=== PATIENT | male | born 1975 | race Caucasian/White ===

== ENCOUNTER 2020-06-23 12:30 | Emergency (ER) | payer MEDICAID ==
[~2020-06-23] VITALS: Ht 160 cm; Wt 60.0 kg
[2020-06-23 12:36] VITALS: BP 180/100
[2020-06-23] MEDS ORDERED: LIDOCAINE 5% PATCH TOP SCH (13:00)
[2020-06-23] MEDS ORDERED: GABAPENTIN 300MG CAPSULE PO ONE (13:00)
[2020-06-23] MEDS ORDERED: ACETAMINOPHEN 325MG TABLET PO ONE (13:00)
[2020-06-23] MEDS ORDERED: LIDO1ADH7 TP (14:45)
[2020-06-23] MEDS ORDERED: TOPUD MT (14:45)
[2020-06-23] MEDS ORDERED: GABA-532 MT (14:45)
== END 2020-06-23 15:18 | disposition home or self-care (01) ==
LOC: ER 12:30
DX: M25.562 Pain in left knee (principal); I10 Essential (primary) hypertension; Z98.890 Other specified postprocedural states
CPT/HCPCS: 73502; 99283

== ENCOUNTER 2021-09-27 12:49 | Emergency (ER) | payer MEDICAID ==
[~2021-09-27] VITALS: Ht 160 cm; Wt 60.0 kg
[~2021-09-27 12:49] MED LIST: ASPI-1406 MT; CALC667T6 MT; FERR325T6 MT; GABA-529 MT; GABA-532 MT; LIDO1ADH7 TP; METO-539 MT; NEPVIT MT; NIFE-32 MT; PRAV20TA57 MT; SEVE800T8 MT; TOPUD MT
[2021-09-27 12:57] VITALS: BP 234/122
== END 2021-09-27 21:12 | disposition left against medical advice (07) ==
LOC: ER 12:49
DX: Z53.21 Procedure and treatment not carried out due to patient leaving prior to being seen by health care provider (principal)

== ENCOUNTER 2021-09-28 15:03 | Inpatient (IN) | payer MEDICAID ==
[~2021-09-28] VITALS: Ht 160 cm; Wt 63.5 kg
[2021-09-28] MEDS ORDERED: HYDRALAZINE 20MG/ML VIAL IV ONE ×2 (15:15→17:00)
[2021-09-28 15:37] LABS: BASOPHILS % 3.1 % (0.0-2.0); EOSINOPHILS % 5.9 % (0.0-5.0); HEMATOCRIT. 31.9 % (42.0-52.0); HEMOGLOBIN. 11.3 g/dL (14.0-18.0); LYMPHOCYTES % 14.7 % (20.0-50.0); MEAN CORPUSCULAR HEMOGLOBIN 32.9 pg (28.0-32.0); MEAN CORPUSCULAR VOLUME 93.3 fL (80.0-94.0); MEAN PLATELET VOLUME 7.3 fl (7.4-10.4); MONOCYTES % 5.9 % (2.0-8.0); NEUTROPHILS % 70.4 % (40.0-76.0); PLATELET 175 x1000/uL (130-400); RED BLOOD CELL COUNT 3.42 mill/uL (4.7-6.1); RED CELL DISTRIBUTION WIDTH 15.5 % (11.6-14.6)
[2021-09-28 15:47] LABS: CHLORIDE 99 mEq/L (98-107)
[2021-09-28 22:50] VITALS: BP 186/98
[2021-09-29] MEDS ORDERED: DEXTROSE 50% WATER 50ML SYRINGE IV PRN ×2 (00:45)
[2021-09-29] MEDS ORDERED: ACETAMINOPHEN 325MG TABLET PO PRN (00:45)
[2021-09-29] MEDS: CLONIDINE 0.1MG TABLET PO PRN (01:55)
[2021-09-29 04:00] VITALS: BP 164/92
[2021-09-29] MEDS: BLOOD SUGAR DIAGNOSTIC STRIP TEST SCH ×4 (07:13→20:46)
[2021-09-29] MEDS: INSULIN LISPRO 100 UNITS/ML SUBCUT SCH ×4 (07:14→20:46)
[2021-09-29 07:36] VITALS: BP 175/94
[2021-09-29] MEDS: ASPIRIN 81MG EC TABLET PO SCH (08:16)
[2021-09-29] MEDS: NIFEDIPINE XL 60MG TAB PO SCH (08:17)
[2021-09-29] MEDS: METOPROLOL TARTRATE 50MG TABLET PO SCH ×2 (08:17→17:21)
[2021-09-29] MEDS: SEVELAMER CARBONATE 800 MG TABLET PO SCH ×3 (08:17→17:21)
[2021-09-29] MEDS: FOLIC ACID/VITAMIN B COMP W-C TABLET PO SCH (08:17)
[2021-09-29] MEDS ORDERED: REGADENOSON 0.4 MG/5 ML IV NR (08:30)
[2021-09-29] MEDS: HYDRALAZINE HCL 50MG TABLET PO SCH ×3 (10:00→22:27)
[2021-09-29 11:36] VITALS: BP 168/92
[2021-09-29 13:01] LABS: HEPATITIS B SURFACE ANTIGEN NEGATIVE
[2021-09-29 16:00] VITALS: BP 128/73
[2021-09-29 20:00] VITALS: BP 142/83
[2021-09-29] MEDS: ATORVASTATIN CALCIUM 10MG TABLET PO SCH (20:46)
[2021-09-30] VITALS: BP 126/72
[2021-09-30 04:00] VITALS: BP 156/91
[2021-09-30] MEDS: HYDRALAZINE HCL 50MG TABLET PO SCH ×3 (05:17→21:51)
[2021-09-30] MEDS: BLOOD SUGAR DIAGNOSTIC STRIP TEST SCH ×4 (06:31→21:52)
[2021-09-30] MEDS: INSULIN LISPRO 100 UNITS/ML SUBCUT SCH ×4 (06:31→21:00)
[2021-09-30 07:03] LABS: BASOPHILS % 1.7 % (0.0-2.0); EOSINOPHILS % 7.8 % (0.0-5.0); HEMATOCRIT. 31.6 % (42.0-52.0); HEMOGLOBIN. 10.7 g/dL (14.0-18.0); LYMPHOCYTES % 18.5 % (20.0-50.0); MEAN CORPUSCULAR HEMOGLOBIN 31.8 pg (28.0-32.0); MEAN CORPUSCULAR VOLUME 93.8 fL (80.0-94.0); MEAN PLATELET VOLUME 7.8 fl (7.4-10.4); PLATELET 173 x1000/uL (130-400); RED BLOOD CELL COUNT 3.37 mill/uL (4.7-6.1); RED CELL DISTRIBUTION WIDTH 15.6 % (11.6-14.6)
[2021-09-30 07:44] VITALS: BP 155/85
[2021-09-30] MEDS: SEVELAMER CARBONATE 800 MG TABLET PO SCH ×3 (08:20→17:10)
[2021-09-30] MEDS: NIFEDIPINE XL 60MG TAB PO SCH (08:20)
[2021-09-30] MEDS: FOLIC ACID/VITAMIN B COMP W-C TABLET PO SCH (08:20)
[2021-09-30] MEDS: ASPIRIN 81MG EC TABLET PO SCH (08:20)
[2021-09-30] MEDS: METOPROLOL TARTRATE 50MG TABLET PO SCH ×2 (08:20→17:10)
[2021-09-30 11:49] VITALS: BP 158/90
[2021-09-30 15:48] VITALS: BP 137/80
[2021-09-30] MEDS: ATORVASTATIN CALCIUM 10MG TABLET PO SCH (21:51)
[2021-10-01] VITALS: BP 173/104
[2021-10-01] MEDS: CLONIDINE 0.1MG TABLET PO PRN ×2 (01:04→17:12)
[2021-10-01 03:48] VITALS: BP 156/91
[2021-10-01] MEDS: HYDRALAZINE HCL 50MG TABLET PO SCH ×2 (05:56→13:36)
[2021-10-01] MEDS: BLOOD SUGAR DIAGNOSTIC STRIP TEST SCH ×3 (06:13→17:17)
[2021-10-01] MEDS: INSULIN LISPRO 100 UNITS/ML SUBCUT SCH ×3 (06:13→17:40)
[2021-10-01 07:09] LABS: BASOPHILS % 1.9 % (0.0-2.0); EOSINOPHILS % 8.4 % (0.0-5.0); HEMATOCRIT. 31.4 % (42.0-52.0); HEMOGLOBIN. 10.7 g/dL (14.0-18.0); LYMPHOCYTES % 21.6 % (20.0-50.0); MEAN CORPUSCULAR HEMOGLOBIN 32.2 pg (28.0-32.0); MEAN CORPUSCULAR VOLUME 94.9 fL (80.0-94.0); MEAN PLATELET VOLUME 7.6 fl (7.4-10.4); MONOCYTES % 7.9 % (2.0-8.0); NEUTROPHILS % 60.2 % (40.0-76.0); PLATELET 164 x1000/uL (130-400); RED BLOOD CELL COUNT 3.31 mill/uL (4.7-6.1); RED CELL DISTRIBUTION WIDTH 15.6 % (11.6-14.6)
[2021-10-01 08:00] VITALS: BP 189/109
[2021-10-01] MEDS: METOPROLOL TARTRATE 50MG TABLET PO SCH ×2 (08:36→17:12)
[2021-10-01] MEDS: NIFEDIPINE XL 60MG TAB PO SCH (08:37)
[2021-10-01] MEDS: SEVELAMER CARBONATE 800 MG TABLET PO SCH ×3 (09:00→17:12)
[2021-10-01] MEDS ORDERED: REGADENOSON 0.4 MG/5 ML IV ONE (10:51)
[2021-10-01 12:00] VITALS: BP 141/83
[2021-10-01] MEDS: FOLIC ACID/VITAMIN B COMP W-C TABLET PO SCH (13:36)
[2021-10-01] MEDS: ASPIRIN 81MG EC TABLET PO SCH (13:36)
[2021-10-01] MEDS ORDERED: HYDR100T26 MT (14:54)
[2021-10-01] MEDS ORDERED: NIFE-32 MT (14:54)
[2021-10-01] MEDS ORDERED: METO-539 MT (14:54)
[2021-10-01 16:00] VITALS: BP 159/95
[2021-10-01 17:57] VITALS: BP 150/86
== END 2021-10-01 18:30 | disposition home or self-care (01) | DRG 194 ==
LOC: ER 15:03 → EDBEDREQ 20:14 → EDBEDREQTM 20:14 → ENRESERV 21:07 → 8WST 23:03
PROVIDERS: ADMIT Internal Medicine; ATTEND Internal Medicine
PROC: 5A1D70Z Performance of Urinary Filtration, Intermittent, Less than 6 Hours Per Day (ICD-10-PCS; principal; 2021-09-29)
DX: I13.2 Hypertensive heart and chronic kidney disease with heart failure and with stage 5 chronic kidney disease, or end stage renal disease (principal); J81.1 Chronic pulmonary edema; N18.6 End stage renal disease; E87.1 Hypo-osmolality and hyponatremia; M94.0 Chondrocostal junction syndrome [Tietze]; I50.31 Acute diastolic (congestive) heart failure; I16.0 Hypertensive urgency; E78.5 Hyperlipidemia, unspecified; E87.5 Hyperkalemia; Z20.822 Contact with and (suspected) exposure to COVID-19; D64.9 Anemia, unspecified; Z79.82 Long term (current) use of aspirin; Z99.2 Dependence on renal dialysis; Z82.49 Family history of ischemic heart disease and other diseases of the circulatory system
CPT/HCPCS: 36415; 71045; 78452; 80048; 80053; 82962; 83036; 83880; 84132; 84484; 85025; 86705; 86709; 86803; 87340; 87426; 93005; 93017; 93306; 99291; A9500; J0360; J2785

== ENCOUNTER 2022-04-03 17:40 | Inpatient (IN) | payer MEDICAID ==
[~2022-04-03] VITALS: Ht 162.6 cm; Wt 64.5 kg
[~2022-04-03 17:40] MED LIST changes: +HYDR100T26 MT
[2022-04-03 23:12] LABS: BASOPHILS % 0.7 % (0.0-2.0); EOSINOPHILS % 2.5 % (0.0-5.0); HEMATOCRIT. 23.2 % (42.0-52.0); HEMOGLOBIN. 7.9 g/dL (14.0-18.0); LYMPHOCYTES % 7.7 % (20.0-50.0); MEAN CORPUSCULAR HEMOGLOBIN 33.1 pg (28.0-32.0); MEAN CORPUSCULAR VOLUME 97.8 fL (80.0-94.0); MEAN PLATELET VOLUME 7.5 fl (7.4-10.4); MONOCYTES % 7.6 % (2.0-8.0); NEUTROPHILS % 81.5 % (40.0-76.0); PLATELET 132 x1000/uL (130-400); RED BLOOD CELL COUNT 2.37 mill/uL (4.7-6.1); RED CELL DISTRIBUTION WIDTH 15.6 % (11.6-14.6)
[2022-04-03 23:13] LABS: CHLORIDE 98 mEq/L (98-107)
[2022-04-04] VITALS (12 sets, daily range): BP systolic 109–191; BP diastolic 60–108
[2022-04-04] MEDS ORDERED: CALCIUM CHLORIDE 1GM/10ML SYR IV ONE ×2 (00:15→05:00)
[2022-04-04] MEDS ORDERED: INSULIN REGULAR (HUMULIN R) 300UNITS/3ML VIAL IV ONE (00:15)
[2022-04-04] MEDS ORDERED: ALBUTEROL (0.083%) 2.5MG/3ML NEB HHN ONE ×2 (00:15→05:00)
[2022-04-04] MEDS ORDERED: SODIUM BICARBONATE 8.4% 1 MEQ/ML 50ML SYR IV ONE (00:15)
[2022-04-04] MEDS ORDERED: DEXTROSE 50% WATER 50ML SYRINGE IV ONE (00:15)
[2022-04-04 03:51] LABS: BG BASE EXCESS -0.7 mmol/L (-2.0-2.0); BG CARBOXYHEMOGLOBIN 0.6 % (0.5-1.5); BG DEOXYHEMOGLOBIN 10.5 % (0.0-5.0); BG FRACTION INSPIRED OXYGEN 21; BG HCO3 ACT 23.3 mmol/L (22.0-26.0); BG METHEMOGLOBIN 0.3 % (0.0-1.5); BG OXYGEN SATURATION 89.4 % (92.0-98.5); BG OXYHEMOGLOBIN 88.6 % (94.0-97.0); BG PCO2 35.3 mmHg (35.0-45.0); BG PH 7.438 (7.350-7.450); BG PO2 62.2 mmHg (75.0-100.0); BG SAMPLE SITE RIGHT RADIAL; BG TOTAL HEMOGLOBIN 7.7 g/dL (12.0-18.0); BG VENT MODE ROOM AIR
[2022-04-04] MEDS ORDERED: ONDANSETRON HCL 4MG/2ML INJ IV PRN (04:15)
[2022-04-04] MEDS ORDERED: MAGNESIUM/ALUMINUM HYDROXIDE/SIMETHICONE 30ML UDC PO PRN (04:15)
[2022-04-04] MEDS ORDERED: IPRATROPIUM/ALBUTEROL 0.5-3(2.5)MG/3ML NEB NEB PRN (04:15)
[2022-04-04] MEDS ORDERED: ACETAMINOPHEN 325MG TABLET PO PRN ×2 (04:15)
[2022-04-04] MEDS ORDERED: NIFE90TA43 PO (04:24)
[2022-04-04] MEDS ORDERED: DOXA4TAB3 PO (04:24)
[2022-04-04] MEDS ORDERED: HYDR100T31 PO (04:24)
[2022-04-04] MEDS ORDERED: SODIUM POLYSTYRENE SULFONATE 15 G/60 ML BOT PO NR (05:00)
[2022-04-04 06:33] LABS: HEMATOCRIT. 22.7 % (42.0-52.0); HEMOGLOBIN. 7.8 g/dL (14.0-18.0); MEAN CORPUSCULAR HEMOGLOBIN 33.5 pg (28.0-32.0); MEAN CORPUSCULAR VOLUME 98.1 fL (80.0-94.0); MEAN PLATELET VOLUME 7.3 fl (7.4-10.4); PLATELET 124 x1000/uL (130-400); RED BLOOD CELL COUNT 2.31 mill/uL (4.7-6.1); RED CELL DISTRIBUTION WIDTH 15.6 % (11.6-14.6)
[2022-04-04] MEDS: CLONIDINE 0.1MG TABLET PO PRN ×2 (06:35→15:39)
[2022-04-04 06:39] LABS: CHLORIDE 97 mEq/L (98-107)
[2022-04-04 06:55] LABS: HDL CHOLESTEROL 70 mg/dL (40-59); LDL CHOLESTEROL 69 mg/dL (5-100); T4 FREE 1.33 ng/dL (0.76-1.46); TOTAL IRON BINDING CAPACITY 261 ug/dL (250-450)
[2022-04-04 07:02] LABS: CREATINE KINASE MB FRACTION 4.4 ng/mL (0.5-3.6); FERRITIN 950 ng/mL (22-322)
[2022-04-04 07:14] LABS: VITAMIN B12 SERUM 416 pg/mL (211-911)
[2022-04-04 07:15] LABS: HEPATITIS B SURFACE ANTIGEN NEGATIVE
[2022-04-04 08:17] LABS: PHOSPHORUS 3.7 mg/dL (2.5-4.9)
[2022-04-04] MEDS ORDERED: DOXAZOSIN MESYLATE 4MG TABLET PO SCH (09:00)
[2022-04-04] MEDS: HYDRALAZINE HCL 100MG TABLET PO SCH ×2 (09:00→17:11)
[2022-04-04 09:09] LABS: PLATELET ESTIMATE SLIGHTLY DECREASED
[2022-04-04] MEDS: SEVELAMER CARBONATE 800 MG TABLET PO SCH ×3 (12:10→17:45)
[2022-04-04] MEDS: FOLIC ACID/VITAMIN B COMP W-C TABLET PO SCH (14:25)
[2022-04-04] MEDS: FAMOTIDINE 20MG/2ML VIAL IV SCH (14:25)
[2022-04-04] MEDS: NIFEDIPINE XL 90MG TAB PO SCH (14:26)
[2022-04-04] MEDS: ATORVASTATIN CALCIUM 10MG TABLET PO SCH (14:26)
[2022-04-04] MEDS: DOXAZOSIN MESYLATE 4MG TABLET PO SCH (17:46)
[2022-04-04] MEDS ORDERED: IPRATROPIUM BROMIDE (0.02%) 0.5MG/2.5ML NEB HHN PRN (18:00)
[2022-04-04] MEDS ORDERED: ALBUTEROL (0.083%) 2.5MG/3ML NEB HHN PRN (18:00)
[2022-04-04 18:10] LABS: T4 FREE 1.15 ng/dL (0.76-1.46)
[2022-04-05] VITALS (16 sets, daily range): BP systolic 116–192; BP diastolic 51–105
[2022-04-05] MEDS: CLONIDINE 0.1MG TABLET PO PRN ×2 (04:48→13:30)
[2022-04-05] MEDS: SEVELAMER CARBONATE 800 MG TABLET PO SCH ×3 (06:38→17:57)
[2022-04-05] MEDS: FOLIC ACID/VITAMIN B COMP W-C TABLET PO SCH (08:41)
[2022-04-05] MEDS: ATORVASTATIN CALCIUM 10MG TABLET PO SCH (08:41)
[2022-04-05] MEDS: FAMOTIDINE 20MG/2ML VIAL IV SCH (08:41)
[2022-04-05] MEDS: NIFEDIPINE XL 90MG TAB PO SCH (08:42)
[2022-04-05] MEDS: DOXAZOSIN MESYLATE 4MG TABLET PO SCH ×2 (08:42→17:57)
[2022-04-05] MEDS: HYDRALAZINE HCL 100MG TABLET PO SCH ×3 (08:54→21:40)
[2022-04-05 09:34] LABS: BASOPHILS % 1.7 % (0.0-2.0); EOSINOPHILS % 5.8 % (0.0-5.0); HEMATOCRIT. 21.2 % (42.0-52.0); HEMOGLOBIN. 7.1 g/dL (14.0-18.0); LYMPHOCYTES % 15.6 % (20.0-50.0); MEAN CORPUSCULAR HEMOGLOBIN 32.8 pg (28.0-32.0); MEAN CORPUSCULAR VOLUME 98.1 fL (80.0-94.0); MEAN PLATELET VOLUME 7.8 fl (7.4-10.4); MONOCYTES % 8.1 % (2.0-8.0); NEUTROPHILS % 68.8 % (40.0-76.0); PLATELET 120 x1000/uL (130-400); RED BLOOD CELL COUNT 2.17 mill/uL (4.7-6.1); RED CELL DISTRIBUTION WIDTH 15.3 % (11.6-14.6)
[2022-04-05 09:51] LABS: CREATINE KINASE 154 IU/L (39-308)
[2022-04-05] MEDS ORDERED: EPOETIN ALFA-EPBX 4,000 UNIT/ML VIAL SUBCUT NR (21:00)
[2022-04-05] MEDS: CARVEDILOL 12.5MG TABLET PO SCH (21:40)
[2022-04-06] VITALS (18 sets, daily range): BP systolic 116–239; BP diastolic 67–118
[2022-04-06] MEDS: HYDRALAZINE HCL 100MG TABLET PO SCH ×3 (05:44→21:07)
[2022-04-06] MEDS: SEVELAMER CARBONATE 800 MG TABLET PO SCH ×3 (06:29→17:39)
[2022-04-06] MEDS: CLONIDINE 0.1MG TABLET PO PRN (07:27)
[2022-04-06] MEDS: FAMOTIDINE 20MG/2ML VIAL IV SCH (08:33)
[2022-04-06] MEDS: ATORVASTATIN CALCIUM 10MG TABLET PO SCH (08:33)
[2022-04-06] MEDS: FOLIC ACID/VITAMIN B COMP W-C TABLET PO SCH (08:33)
[2022-04-06] MEDS: CARVEDILOL 12.5MG TABLET PO SCH ×2 (08:33→21:06)
[2022-04-06] MEDS: DOXAZOSIN MESYLATE 4MG TABLET PO SCH ×3 (08:40→17:00)
[2022-04-06] MEDS: NIFEDIPINE XL 90MG TAB PO SCH ×2 (08:41→09:59)
[2022-04-06 10:13] LABS: BASOPHILS % 1.8 % (0.0-2.0); EOSINOPHILS % 5.9 % (0.0-5.0); HEMATOCRIT. 23.3 % (42.0-52.0); LYMPHOCYTES % 17.1 % (20.0-50.0); MEAN CORPUSCULAR HEMOGLOBIN 32.6 pg (28.0-32.0); MEAN PLATELET VOLUME 7.7 fl (7.4-10.4); MONOCYTES % 10.2 % (2.0-8.0); PLATELET 118 x1000/uL (130-400); RED BLOOD CELL COUNT 2.46 mill/uL (4.7-6.1); RED CELL DISTRIBUTION WIDTH 14.8 % (11.6-14.6)
[2022-04-06 10:27] LABS: CHLORIDE 94 mEq/L (98-107)
[2022-04-06] MEDS ORDERED: CLONIDINE 0.3MG TABLET PO NR (11:30)
[2022-04-06] MEDS ORDERED: METOPROLOL TARTRATE 25MG TABLET PO ONE (13:00)
[2022-04-06] MEDS ORDERED: CARVEDILOL 12.5MG TABLET PO SCH (13:15)
[2022-04-06 14:04] LABS: PHOSPHORUS 7.1 mg/dL (2.5-4.9)
[2022-04-06] MEDS: CLONIDINE 0.2MG TABLET PO SCH ×2 (14:56→21:10)
[2022-04-06] MEDS: LOSARTAN POTASSIUM 100 MG TABLET PO SCH (14:56)
[2022-04-06] MEDS ORDERED: METOPROLOL TARTRATE 50MG TABLET PO SCH (21:00)
[2022-04-07] VITALS: BP 110/59
[2022-04-07 05:00] VITALS: BP 142/82
[2022-04-07] MEDS: HYDRALAZINE HCL 100MG TABLET PO SCH ×2 (05:05→13:17)
[2022-04-07] MEDS: CLONIDINE 0.2MG TABLET PO SCH ×2 (05:05→13:17)
[2022-04-07 06:40] LABS: HEMATOCRIT 24.8 % (42.0-52.0); HEMOGLOBIN 8.6 g/dL (14.0-18.0); MEAN CORPUSCULAR HEMOGLOBIN 32.5 pg (28.0-32.0); MEAN CORPUSCULAR VOLUME 93.5 fL (80.0-94.0); PLATELET 139 x1000/uL (130-400); RED BLOOD CELL COUNT 2.65 mill/uL (4.7-6.1); RED CELL DISTRIBUTION WIDTH 14.9 % (11.6-14.6)
[2022-04-07 07:06] LABS: CHLORIDE 100 mEq/L (98-107)
[2022-04-07 07:14] LABS: PHOSPHORUS 6.4 mg/dL (2.5-4.9)
[2022-04-07 08:00] VITALS: BP 138/85
[2022-04-07] MEDS: SEVELAMER CARBONATE 800 MG TABLET PO SCH ×2 (08:08→13:20)
[2022-04-07] MEDS: FOLIC ACID/VITAMIN B COMP W-C TABLET PO SCH (08:08)
[2022-04-07] MEDS: ATORVASTATIN CALCIUM 10MG TABLET PO SCH (08:09)
[2022-04-07] MEDS: NIFEDIPINE XL 90MG TAB PO SCH (08:09)
[2022-04-07] MEDS: CARVEDILOL 12.5MG TABLET PO SCH (08:10)
[2022-04-07] MEDS: LOSARTAN POTASSIUM 100 MG TABLET PO SCH (08:10)
[2022-04-07] MEDS: DOXAZOSIN MESYLATE 4MG TABLET PO SCH (08:10)
[2022-04-07] MEDS ORDERED: FAMOTIDINE 20MG TABLET PO SCH (09:00)
[2022-04-07] MEDS ORDERED: ISOSORBIDE MONONITRATE 30MG TABLET SR 24HR PO SCH (09:00)
[2022-04-07 12:00] VITALS: BP 123/72
== END 2022-04-07 14:33 | disposition home or self-care (01) | DRG 425 ==
LOC: ER 17:40 → 7EST 04-04 01:36
PROVIDERS: ADMIT Internal Medicine; ATTEND Internal Medicine
PROC: 5A1D70Z Performance of Urinary Filtration, Intermittent, Less than 6 Hours Per Day (ICD-10-PCS; principal; 2022-04-04)
PROC: 5A1D70Z Performance of Urinary Filtration, Intermittent, Less than 6 Hours Per Day (ICD-10-PCS; 2022-04-05)
PROC: 30233N1 Transfusion of Nonautologous Red Blood Cells into Peripheral Vein, Percutaneous Approach (ICD-10-PCS; 2022-04-05)
PROC: 5A1D70Z Performance of Urinary Filtration, Intermittent, Less than 6 Hours Per Day (ICD-10-PCS; 2022-04-06)
DX: E87.5 Hyperkalemia (principal); I12.0 Hypertensive chronic kidney disease with stage 5 chronic kidney disease or end stage renal disease; D69.6 Thrombocytopenia, unspecified; I27.20 Pulmonary hypertension, unspecified; J81.1 Chronic pulmonary edema; E83.39 Other disorders of phosphorus metabolism; N18.6 End stage renal disease; E87.70 Fluid overload, unspecified; Z20.822 Contact with and (suspected) exposure to COVID-19; D53.9 Nutritional anemia, unspecified; E78.5 Hyperlipidemia, unspecified; E83.52 Hypercalcemia; Z90.49 Acquired absence of other specified parts of digestive tract; Z91.15 Patient's noncompliance with renal dialysis; Z79.899 Other long term (current) drug therapy; Z99.2 Dependence on renal dialysis
CPT/HCPCS: 36415; 36600; 71045; 80048; 80053; 80061; 82140; 82310; 82375; 82550; 82553; 82607; 82728; 82746; 82805; 83540; 83550; 83735; 83880; 84100; 84439; 84443; 84484; 85025; 85027; 85379; 86705; 86709; 86803; 86850; 86900; 86920; 87340; 90935; 93005; 93306; 99291; C1893; J0885; J1815; J3490; P9016